=== PATIENT | male | born 1985 | race Hispanic/Latino ===

== ENCOUNTER 2019-11-08 10:50 | Emergency (ER) | payer SELFPAY ==
[2019-11-08] MEDS ORDERED: Bupivacaine 0.5% 10 ML VIAL ONE (11:05)
[2019-11-08] MEDS ORDERED: Lidocaine 1% (PF) 30 ML VIAL ONE (11:05)
--- NOTE | 2019-11-08 12:24 | RAD ---
FINGERS LEFT HAND: Left middle finger evaluated. 3 views. INDICATION: Middle finger injury with pain. FINDINGS: No evidence of fracture. No evidence of dislocation. IMPRESSION: No acute osseous abnormality. POS: [id number]
== END 2019-11-08 12:23 | disposition home or self-care (01) ==
LOC: ERS 10:50
DX: S61.213A Laceration without foreign body of left middle finger without damage to nail, initial encounter (principal); W26.9XXA Contact with unspecified sharp object(s), initial encounter; Y93.H2 Activity, gardening and landscaping
CPT/HCPCS: 96372; J2001; J3490

== ENCOUNTER 2019-11-15 08:31 | Emergency (ER) | payer SELFPAY | END 2019-11-15 08:48 | disposition home or self-care (01) | LOC: ERS 08:31 | DX: S61.213D Laceration without foreign body of left middle finger without damage to nail, subsequent encounter (principal); X58.XXXD Exposure to other specified factors, subsequent encounter ==